=== PATIENT | male | born 1970 | race Caucasian/White ===

== ENCOUNTER 2024-04-07 15:01 | Emergency (ER) | payer BC, SELFPAY ==
[2024-04-07 15:03] VITALS: BP 171/109
[2024-04-07 15:12] LABS: Glucose - Point of Care 334 mg/dl (70-99)
[2024-04-07 15:26] LABS: % Basophils 0.4 % (0-2); % Eosinophils 0.9 % (0-6); % Immature Granulocytes 0.6 % (0-0.5); % Lymphocytes 20.6 % (20.5-51.1); % Monocytes 10.2 % (1.7-9.3); % Neutrophils 67.3 % (42.2-75.2); Absolute Basophils 0.1 10^3/uL (0-0.2); Absolute Eosinophils 0.1 10^3/uL (0-0.7); Absolute Immature Granulocytes 0.1 10^3/uL (0-0.05); Absolute Lymphocytes 2.3 10^3/uL (1.2-3.4); Absolute Monocytes 1.2 10^3/uL (0.1-0.6); Absolute Neutrophils 7.6 10^3/uL (1.4-6.5); Hematocrit 48.5 % (39.0-52.0); Hemoglobin 16.9 g/dL (13.0-18.0); Mean Corp Hgb Conc. 34.8 g/dL (33.0-37.0); Mean Corpuscular Hgb 28.8 pg (27.0-31.0); Mean Corpuscular Volume 82.6 fL (80.0-94.0); Mean Platelet Volume 10.1 fL (7.4-10.4); Nucleated Red Blood Cells % 0 % (-); Platelet Count 224 10^3/uL (130-400); Red Blood Cell Count 5.87 10^6/uL (4.70-6.10); Red Cell Dist. Width 12.3 % (11.5-14.5); White Blood Cell Count 11.3 10^3/uL (4.8-10.8)
[2024-04-07 15:53] LABS: ALT (SGPT) 30 U/L (0-50); AST (SGOT) 31 U/L (17-59); Albumin 4.9 g/dl (3.5-5.0); Alkaline Phosphatase 107 U/L (38-126); Blood Urea Nitrogen 12 mg/dl (9-20); Calcium 10.1 mg/dl (8.4-10.2); Carbon Dioxide 23 mmol/L (22-30); Chloride 100 mmol/L (98-107); Glucose 363 mg/dl (70-99); Potassium 4.4 mmol/L (3.5-5.1); Sodium 135 mmol/L (135-145); Total Bilirubin 1.3 mg/dl (0.2-1.3); Total Protein 7.4 g/dl (6.3-8.2); eGFR > 60.00
[2024-04-07 15:59] LABS: B-Hydroxybutyrate 1.22 mmol/L (0.02-0.27)
[2024-04-07 16:32] VITALS: BMI 39.6
[2024-04-07] MEDS: NSS 1000 IV (16:38)
[2024-04-07 16:39] VITALS: BP 148/94
[2024-04-07 18:36] LABS: Urine Albumin Trace (Neg - Trace); Urine Bilirubin Negative (Negative); Urine Character Clear (Clear); Urine Color Yellow; Urine Glucose 3+ (Negative); Urine Ketone 3+ (Negative); Urine Leukocyte Negative (Negative); Urine Nitrite Negative (Negative); Urine Occult Blood Negative (Negative); Urine Specific Gravity 1.015 (<1.030); Urine Urobilinogen Negative (Neg - 1+)
[2024-04-07 19:14] VITALS: BP 121/86
[2024-04-07 20:09] LABS: Glucose - Point of Care 267 mg/dl (70-99)
--- NOTE | 2024-04-07 20:11 | ED.GENMED ---
History of Present Illness
General
Chief Complaint: Visual Problem
Source: patient
Exam Limitations: none
Time Seen by Provider: 04/07/24 16:07
Nursing documentation reviewed up to this point in time: agreed with
History of Present Illness
History of Present Illness:
53-year-old male past medical history of diabetes hypertension presenting to the emergency department with double vision only to the left side starting yesterday morning no other symptoms. Claims that symptoms improve when he blocks one of his
eyes. Seems to be worse when he looks directly to the left. Denies any headache neck pain numbness weakness chest pain or shortness of breath.
Review of Systems
Review of Systems
Allergies reviewed?: Yes
All Other Systems: ROS reviewed and negative except as documented in HPI and ROS
Phy Exam
Physical Exam
Physical Exam:
GENERAL: Alert , in no apparent distress
EYE: pupils equal and reactive
NECK: Supple, no significant adenopathy.
ENT: o/p clr, mmm.
CARDIAC: Regular rate and rhythm .
LUNGS: Clear breath sounds bilaterally, no acute respiratory distress, no wheezes/rales/rhonchi
ABDOMEN: Soft, without focal tenderness, no r/g, no cvat
NEUROLOGICAL: Alert and oriented, no focal neuro deficits 5 out of 5 upper and lower extremity strength normal sensation with palpating bilaterally normal finger-nose and [id number]. No visual field cuts.
SKIN: Warm and dry, skin intact.
MUSCULOSKELETAL: No edema, well perfused.
PSYCH: Normal and appropriate interaction.
Course
Orders/Labs/Results
Orders:
Orders
04/07/24 15:19
B-Hydroxybutyrate Urgent
Complete Blood Count/With Diff Urgent
Comprehensive Metabolic Panel Urgent
04/07/24 16:08
EKG [Electrocardiogram (*1)] Urgent
Reason for Study: TIA/Stroke
CT Head W/o Iv Contrast Urgent
Comment:
Reason For Exam: double vision
EKG- Treatment ONCE
0.9% Sodium Chloride 1000 ml [Nss] 1,000 ml IV BOLUS
04/07/24 18:29
UA Reflex to Culture [Urinalysis Reflex To Culture] Urgent
Date Specimen was Collected: 04/07/24
Time Specimen was Collected: 18:18
Abnormal Lab Results
04/07/24 04/07/24 04/07/24
15:10 15:19 18:29
WBC 11.3 H 10^3/uL
(4.8-10.8)
Abs Immat Gran (auto) 0.1 H 10^3/uL
(0-0.05)
Absolute Neuts (auto) 7.6 H 10^3/uL
(1.4-6.5)
Absolute Monos (auto) 1.2 H 10^3/uL
(0.1-0.6)
Immature Gran % 0.6 H %
(0-0.5)
Monocytes % 10.2 H %
(1.7-9.3)
Creatinine 0.6 L mg/dL
(0.7-1.3)
Glucose 363 H mg/dl
(70-99)
Urine Ketones 3+ A
(Negative)
Urine Glucose 3+ A
(Negative)
B-Hydroxybutyrate 1.22 H mmol/L
(0.02-0.27)
POC Glucose 334 H mg/dl
(70-99)
04/07/24
20:07
WBC
Abs Immat Gran (auto)
Absolute Neuts (auto)
Absolute Monos (auto)
Immature Gran %
Monocytes %
Creatinine
Glucose
Urine Ketones
Urine Glucose
B-Hydroxybutyrate
POC Glucose 267 H mg/dl
(70-99)
04/07/24 15:19
04/07/24 15:19
Vital Signs
Initial and Last Documented VS:
Initial Vital Signs
Temp Pulse Resp BP Pulse Ox
98.4 F 120 18 171/109 99
04/07/24 15:03 04/07/24 15:03 04/07/24 15:03 04/07/24 15:03 04/07/24 15:03
Last Documented Vital Signs
Temp Pulse Resp BP Pulse Ox
98.6 F 103 16 121/86 98
04/07/24 19:14 04/07/24 19:14 04/07/24 19:14 04/07/24 19:14 04/07/24 19:14
MDM/Problems Addressed
MDM/Problems Addressed:
53-year-old male presenting to the emergency department today with concerns of double vision only with looking to the left and improves and blocking one of his eyes. Here initially his blood pressure was elevated and heart rate but that improved
without specific treatment here. Slight white count of 11 but otherwise labs showing hyperglycemia no gap not consistent with DKA. He admittedly has not been taking his diabetic medications for a few years. Patient will be prescribed Janumet.
Head CT without emergent findings EKG without emergent findings. Symptoms seem to be more consistent with ophthalmologic cause considering it is fully resolved with blocking one of his eyes no additional neurologic deficits. No change in vision in
general. No visual field cuts. Advised for close operative follow-up as well as primary care follow-up return precautions given.
*Critical Care Note
Total Time (30-74mins, 75-104mins- exclusive of procedures): Not Applicable
ED Attending Note
-
Portions of this chart may have been created with voice recognition software.� Occasional wrong word or��sound alike� substitutions may have occurred due to the inherent limitations of voice recognition software.
Discharge Plan
Departure
Patient Disposition: Home (Routine Discharge)
Date of Disposition: 04/07/24
Time of Disposition: 20:13
Patient with high blood pressure during this ER visit?: No
Condition: Good
Covid-19: Not Applicable
Discharge Problem:
Diplopia, Hyperglycemia
Instructions: Double Vision (DC)
Prescriptions:
New
Janumet 50-500 mg tablet
1 tab PO BID 30 Days Qty: 60 0RF
No Action
loratadine 10 mg Tablet
10 mg PO DAILY
Referrals:
[facility] [Provider Group]
Rogerio Ryder MD [Active] - Follow up in 5-7 days
Daquan Andrade MD [Family Provider] -
Activity Restrictions/Additional Instructions:
You came to the emergency department today with concerns of double vision. Please follow closely with the eye doctor in the next few days. Additionally see the primary care doctor in the next few days. Please try taking your Janumet and keep a
close eye on your blood sugar level. Return to the emergency department for any worsening, new or concerning symptoms.
Interventions
Interventions:
*Risk Screen - Suicide Last Done: 04/07/24 15:03
*General Assessment Last Done: 04/07/24 15:03
*Neglect/Abuse Screening Last Done: 04/07/24 15:03
*ED COVID-19 Vaccine History Last Done: 04/07/24 16:32
ED- Neurological Assessment Last Done: 04/07/24 16:32
ED-EENT Assessment Last Done: 04/07/24 16:32
ED Swallowing Screen Last Done: 04/07/24 19:14
Discharge Date and Time
Print Language: [id number]
== END 2024-04-07 20:30 | disposition home or self-care (01) ==
LOC: EMR 15:01
PROVIDERS: Emergency Medicine; Physician Assistant; EMERGENCY PHYSICIAN Emergency Medicine; FAMILY PHYSICIAN Internal Medicine
DX: H53.2 Diplopia (principal); E11.65 Type 2 diabetes mellitus with hyperglycemia; I10 Essential (primary) hypertension
CPT/HCPCS: 99284; 96360; 70450; 80053; 81003; 82010; 82962; 85025; 93005

== ENCOUNTER → 2024-09-19 07:21 | Outpatient (REF) | payer BC, SELFPAY | LOC: PAVMRI 07:21 | PROVIDERS: ATTENDING PHYSICIAN Specialist | DX: H53.2 Diplopia (principal) | CPT/HCPCS: 70553; A9575 ==